=== PATIENT | female | born 1955 | race Caucasian/White ===

== ENCOUNTER 2021-08-01 09:59 | Outpatient (CLI) | payer MEDICARE, MEDICAID, SELFPAY | END 2021-08-01 10:00 | disposition home or self-care (01) | LOC: WOUND 10:04 | PROVIDERS: PCP Family Medicine; Visit Provider Emergency Medicine | DX: I96 Gangrene, not elsewhere classified (principal); L97.512 Non-pressure chronic ulcer of other part of right foot with fat layer exposed | CPT/HCPCS: 11042; 87070; 87176; 87205; 99202; 99213 ==

== ENCOUNTER 2021-08-03 13:48 | Outpatient (CLI) | payer MEDICARE, MEDICAID, SELFPAY ==
--- NOTE | 2021-08-03 13:59 | XR_ITS ---
WS: [id number] Right foot, 3 views, 08/03/2021 Clinical Data: DM2 W/ULCER Comparison: None. Findings: No fractures or dislocations are seen. There is erosion of the ungual tuft of the distal phalanx of f irst great toe. Osteoarthritic change of the articulations between the bases of the second through fi fth metatarsals and the tarsal bones is moderate. Intertarsal osteoarthritic changes also present. Th ere is a large plantar spur. There are vascular calcifications. Plantar flexion of the second through fifth toes is seen.. The joint spaces and soft tissues are normal. XR/XR foot RT min 3V* 29013 Impression: 1. Erosion of the ungual tuft of the distal phalanx of the first toe which can be seen with osteomyelitis. 2. 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
== END 2021-08-03 13:49 | disposition home or self-care (01) ==
LOC: RAD 13:58
PROVIDERS: PCP Family Medicine; Visit Provider Family Medicine
DX: E11.621 Type 2 diabetes mellitus with foot ulcer (principal); M85.871 Other specified disorders of bone density and structure, right ankle and foot; R26.89 Other abnormalities of gait and mobility
CPT/HCPCS: 73630; 97760

== ENCOUNTER 2021-08-03 16:25 | Outpatient (CLI) | payer MEDICARE, SELFPAY | END 2021-08-03 16:26 | disposition home or self-care (01) | LOC: SPT 16:26 | PROVIDERS: PCP Family Medicine; Visit Provider Thoracic Surgery (Cardiothoracic Vascular Surgery) | DX: R26.89 Other abnormalities of gait and mobility (principal) | CPT/HCPCS: 97760 ==

== ENCOUNTER 2021-08-15 14:38 | Outpatient (CLI) | payer MEDICARE, MEDICAID, SELFPAY | END 2021-08-15 14:39 | disposition home or self-care (01) | LOC: WOUND 14:38 | PROVIDERS: PCP Family Medicine; Visit Provider Thoracic Surgery (Cardiothoracic Vascular Surgery) | DX: I96 Gangrene, not elsewhere classified (principal); E11.621 Type 2 diabetes mellitus with foot ulcer; L97.511 Non-pressure chronic ulcer of other part of right foot limited to breakdown of skin | CPT/HCPCS: 97597 ==

== ENCOUNTER 2021-08-24 09:09 | Outpatient (CLI) | payer MEDICARE, MEDICAID, SELFPAY ==
--- NOTE | 2021-08-23 11:06 | USCV_ITS ---
Fawn Andre Age: 66 Gender: F : 1955 Exam Date: 08/23/2021 11:31 Ordering Phys: Marsha Latif DO Technologist: CARLOS [place] [facility] [place]: HISTORY: PROCEDURES: Venous duplex imaging was performed in only the right lower extremity. The following venous structures were evaluated: common femoral vein, profunda vein, proximal portion of the greater saphenous vein, superficial femoral vein, and the popliteal vein. Serial compression, augmentation maneuvers, and spectral Doppler flow evaluation were performed. Right duplex Venous Insufficiency study of the Deep and Superficial systems was carried out according to normal protocol with the patient in supine positon for deep system and dependent position for the superficial system. FINDINGS: PATIENT IS GOOD CANDIDATE FOR RIGHT VENOUS ABLATION The veins were found to be easily compressible with spontaneous blood flow. Non pulsatile flow pattern. CONCLUSIONS 1. No evidence of DVT in the above-mentioned veins. 2. No significant deep venous reflux on the right side. 3. Significant venous reflux of greater than 500 ms were noted throughout the greater saphenous vein segments on the right side, including the saphenofemoral junction. These venous segments where measuring anywhere from 0.37 to 0.65 cm in diameter and at a depth of greater than 1 cm except the segment distal to the saphenofemoral junction. 4. Significant venous reflux of greater than 500 ms was also noted at the mid small saphenous vein segment on the right side. But the segment was relatively small caliber and less than 1 cm deep from the surface Dr Barbara Ruvalcaba MD [facility] (Electronically Signed) Final Date: 24 August 2021 17:19 S
--- NOTE | 2021-08-24 09:10 | USCV_ITS ---
Fawn Andre Age: 66 Gender: F : 1955 Exam Date: 08/24/2021 08:47 Ordering Phys: Marsha Latif DO Technologist: Exam Location: [facility] – [place] Indication: DM2 WITH WOUND RIGHT LEFT Brachial 142.00 mmHg Brachial 146.00 mmHg Pressure (mmHg) Waveform Pressure (mmHg) Waveform 150.00 SECTION WEAVER 161.00 DPA 1.10 Ankle/Brachial Index 96.00 Pre-Exercise Toe Pressure 0.66 Pre-Exercise Toe/Brachial Index FINDINGS Normal resting ELIE on the right side. Minimally diminished resting TBI on the right side. PVR waveforms are of low amplitude throughout the right lower extremity CONCLUSIONS Minimally diminished resting TBI on the right side, suggestive of mild peripheral artery disease. Abnormal PVR waveforms most likely related to technical issues Dr Barbara Ruvalcaba MD [facility] (Electronically Signed) Final Date: 24 August 2021 17:35 S
== END 2021-08-24 09:10 | disposition home or self-care (01) ==
LOC: RAD 09:09
PROVIDERS: PCP Family Medicine; Visit Provider Emergency Medicine
DX: E11.621 Type 2 diabetes mellitus with foot ulcer (principal); I87.2 Venous insufficiency (chronic) (peripheral)
CPT/HCPCS: 93922; 93971

== ENCOUNTER 2021-08-24 09:41 | Outpatient (CLI) | payer MEDICARE, MEDICAID, SELFPAY | END 2021-08-24 09:42 | disposition home or self-care (01) | LOC: WOUND 09:42 | PROVIDERS: PCP Family Medicine; Visit Provider Nurse Practitioner Family | DX: E11.621 Type 2 diabetes mellitus with foot ulcer (principal); L97.511 Non-pressure chronic ulcer of other part of right foot limited to breakdown of skin; I87.2 Venous insufficiency (chronic) (peripheral) | CPT/HCPCS: 11042; 93922 ==

== ENCOUNTER 2021-08-31 | Outpatient (CLI) | payer MEDICARE, MEDICAID, SELFPAY | END 2021-08-31 23:59 | disposition home or self-care (01) | LOC: RAD 01-16 08:51 | PROVIDERS: PCP Family Medicine; Visit Provider Emergency Medicine | DX: E11.621 Type 2 diabetes mellitus with foot ulcer (principal); L97.511 Non-pressure chronic ulcer of other part of right foot limited to breakdown of skin | CPT/HCPCS: 99212 ==

== ENCOUNTER 2021-08-31 09:05 | Outpatient (CLI) | payer MEDICARE, MEDICAID, SELFPAY | END 2021-08-31 09:06 | disposition home or self-care (01) | LOC: WOUND 09:08 | PROVIDERS: PCP Family Medicine; Visit Provider Nurse Practitioner Family | DX: E11.621 Type 2 diabetes mellitus with foot ulcer (principal); L97.511 Non-pressure chronic ulcer of other part of right foot limited to breakdown of skin | CPT/HCPCS: 99212 ==

== ENCOUNTER → 2021-09-21 14:35 | Outpatient (BNVA) | payer MEDICARE, MEDICAID, SELFPAY | PROVIDERS: PCP Family Medicine; Visit Provider Nurse Practitioner Family | DX: E11.621 Type 2 diabetes mellitus with foot ulcer (principal); L97.511 Non-pressure chronic ulcer of other part of right foot limited to breakdown of skin; I96 Gangrene, not elsewhere classified | CPT/HCPCS: 99212 ==